=== PATIENT | male | born 1960 | race Two or more races ===

== ENCOUNTER 2019-02-27 21:11 | Emergency (ER) | payer MEDICAID ==
[~2019-02-27] VITALS: Ht 182.9 cm; Wt 79.4 kg
[2019-02-27] MEDS ORDERED: IV NS 0.9% 1,000 ML BAG IV ONE (22:00)
[2019-02-27] MEDS ORDERED: TDAP [DIPH/PERTUSSIS/TET] 0.5 ML VIAL IM ONE ×2 (22:00→22:14)
--- NOTE | 2019-02-27 22:28 | NUR ---
IV LINE L HAND 20G STARTED. FLUIDS BEING ADMINISTERED PER ORDERS.
[2019-02-27 22:43] LABS: BASOPHILS # (AUTO) 0.1 /CMM (0.0-0.2); BASOPHILS % (AUTO) 0.9 % (0.0-2.0); EOSINOPHILS % (AUTO) 1.1 % (0.0-6.0); HEMATOCRIT 39 % (39-51); HEMOGLOBIN 13.3 g/dL (13.5-17.5); LYMPHOCYTES # (AUTO) 3.6 /CMM (0.8-4.8); LYMPHOCYTES % (AUTO) 43.3 % (20.0-44.0); MEAN CORPUSCULAR HGB CONC 35 g/dl (31.0-36.0); MEAN CORPUSCULAR VOLUME 104 fL (80-96); MONOCYTES # (AUTO) 1.5 /CMM (0.1-1.30); MONOCYTES % (AUTO) 17.8 % (2.0-12.0); NEUTROPHILS # (AUTO) 3.1 /CMM (1.8-8.9); NEUTROPHILS % (AUTO) 36.9 % (43.0-81.0); PLATELET COUNT (AUTO) 192 /CMM (150-450); WHITE BLOOD COUNT (AUTO) 8.4 K/uL (4.3-11.0)
[2019-02-27 22:51] LABS: CALCIUM, SERUM 8.6 mg/dL (8.5-10.1); CARBON DIOXIDE 27 mmol/L (21-32); CHLORIDE 107 mmol/L (98-107); CREATININE 0.8 mg/dL (0.6-1.3); GLUCOSE 99 mg/dL (74-106); SODIUM SERUM 143 mmol/L (136-145); UREA NITROGEN, BLOOD 6 mg/dL (7-18)
[2019-02-27 22:58] LABS: ACETAMINOPHEN < 2 ug/ml (10-30); ALANINE AMINOTRANSFERASE 246 U/L (12-78); ALBUMIN 3.3 g/dL (3.4-5.0); ALCOHOL, BLOOD 438 mg/dL (0-0); ALKALINE PHOSPHATASE 80 U/L (46-116); ASPARTATE AMINOTRANSFERASE 247 U/L (15-37); BILIRUBIN,DIRECT 0.1 mg/dL (0.0-0.2); BILIRUBIN,TOTAL 0.3 mg/dL (0.2-1.0); SALICYLATE 4.2 mg/dL (2.8-20.0); TOTAL PROTEIN, SERUM 7.2 g/dL (6.4-8.2)
[2019-02-27 23:55] LABS: LYMPHOCYTES % (MANUAL) 46 % (16-48); MONOCYTES % (MANUAL) 14 % (0-11.0); NEUTROPHILS % (MANUAL) 40 (42-76)
[2019-02-27 23:58] LABS: APPEARANCE,URINE Clear (CLEAR); BILIRUBIN,URINE Negative (NEGATIVE); BLOOD, URINE Trace-intact Ery/uL (NEGATIVE); COLOR,URINE Yellow (YELLOW); KETONES,URINE Negative (NEGATIVE); LEUKOCYTE ESTERASE ,URINE Negative (NEGATIVE); NITRITE, URINE Negative (NEGATIVE); PROTEIN,URINE Negative (NEGATIVE); UGLUCOSE Negative (NEGATIVE); UROBILINOGEN,URINE 0.2 EU/dL (0.2)
[2019-02-28 00:02] LABS: BACTERIA,URINE Rare /HPF (None Seen); SQUAMOUS EPITHELIAL CELL,UR Few /HPF (None Seen); WBC,URINE NONE SEEN /HPF (0-3)
--- NOTE | 2019-02-28 03:31 | NUR ---
IV LINE REMOVED. NO BLEEDING NOTED. GAUZE APPLIED
--- NOTE | 2019-02-28 05:52 | NUR ---
PATIENT NOT READY FOR DISCHARGE AT THIS TIME. UNSTEADY GAIT. MD AWARE
--- NOTE | 2019-02-28 07:29 | NUR ---
ASSESSED PT ON BED ASLEEP, EASILY AROUSABLE, KEPT RESTED AND COMFORTABLE, WILL CONTINUE TO MONITOR.
--- NOTE | 2019-02-28 08:22 | NUR ---
Social service consult requested by JATIN Zimmerman for possible homelessness. Pt. is a 58 year old male who was brought in by paramedics after he was found drinking roberta at a grocery store just prior to arrival. Staff called 911 who later brought him here for further evaluation. SHAQUILLE met with the pt. bedside with SHELIA Torres. Pt. is alert and oriented x 4. Pt. was standing bedside and gathering his belongings. Pt's clothes appeared disheveled. Pt. denied being homeless and stated he resides at [address] [place] [address] [address] [place] [address]. Pt. states he lives alone,. Pt. informed SW, he was working at [employer] but is currently unemployed. SW got pt's social security number for admission staff to updated medical record. Pt. states he drinks wine daily. Pt. denied drinking any other alcohol, although pt. was found drinking Roberta at the grocery store. Pt. states he has been to an alcohol treatment program in [place] a year ago. Pt. states he goes to with friends in [place]. SHAQUILLE offered pt. referrals to alcohol treatment programs, however, pt declined. Pt. was provided with a TAP card to get home. No other social service needs are requested at this time. SW is available, if needed.
--- NOTE | 2019-02-28 08:25 | NUR ---
tiana aguilar at bedside for eval.
--- NOTE | 2019-02-28 08:30 | NUR ---
FOOD TRAY PROVIDED.
--- NOTE | 2019-02-28 08:34 | NUR ---
Patient discharged to home in stable condition. Written and verbal after care instructions given. Patient verbalizes understanding of instruction.
[2019-02-28 08:50] VITALS: BP 127/87
== END 2019-02-28 08:51 | disposition home or self-care (01) ==
LOC: ER 21:11 → EDBD 21:11 → ER 02-28 08:51
DX: S01.311A Laceration without foreign body of right ear, initial encounter (principal); S09.8XXA Other specified injuries of head, initial encounter; F10.129 Alcohol abuse with intoxication, unspecified; R74.0 Nonspecific elevation of levels of transaminase and lactic acid dehydrogenase [LDH]; R40.4 Transient alteration of awareness; Y90.8 Blood alcohol level of 240 mg/100 ml or more; X58.XXXA Exposure to other specified factors, initial encounter; Y93.89 Activity, other specified; Y92.89 Other specified places as the place of occurrence of the external cause; Y99.8 Other external cause status
CPT/HCPCS: 12011; 36415; 70450; 80048; 80076; 80305; 80307; 80329; 81001; 85025; 90471; 90715; 99284; A6403; G0480; 81000-TC

== ENCOUNTER 2019-02-28 11:24 | Emergency (ER) | payer MEDICAID ==
[~2019-02-28] VITALS: Ht 182.9 cm; Wt 92.5 kg
--- NOTE | 2019-02-28 11:25 | NUR ---
PT [id number], PER REPORT NOTED SEIZURE LIKE ACTIVITY AT [facility], PT IS AAOX1, NOT IN RESPIRATORY DISTRESS, HOOKED TO MONITOR, KEPT RESTED AND COMFORTABLE, WILL CONTINUE TO MONITOR.
[2019-02-28] MEDS ORDERED: LEVETIRACETAM (500MG) 1,000 MG in IV NS 0.9% 100 ML IV ONE (11:30)
[2019-02-28] MEDS ORDERED: IV NS 0.9% 1,000 ML BAG IV ONE (11:30)
--- NOTE | 2019-02-28 11:32 | NUR ---
SEEN AND EXAMINED BY .
--- NOTE | 2019-02-28 11:42 | NUR ---
IV LINE ESTABLISHED, BLOOD DRAWNED AND SENT TO LAB.
[2019-02-28 11:48] LABS: BASOPHILS % (AUTO) 0.4 % (0.0-2.0)
--- NOTE | 2019-02-28 11:49 | NUR ---
TO RADIOLOGY FOR CT.
[2019-02-28 11:50] LABS: EOSINOPHILS % (AUTO) 0.8 % (0.0-6.0); HEMATOCRIT 40 % (39-51); HEMOGLOBIN 13.6 g/dL (13.5-17.5); LYMPHOCYTES % (AUTO) 31.6 % (20.0-44.0); MEAN CORPUSCULAR HGB CONC 34 g/dl (31.0-36.0); MEAN CORPUSCULAR VOLUME 105 fL (80-96); MONOCYTES # (AUTO) 1.8 /CMM (0.1-1.30); MONOCYTES % (AUTO) 18.5 % (2.0-12.0); NEUTROPHILS # (AUTO) 4.7 /CMM (1.8-8.9); NEUTROPHILS % (AUTO) 48.7 % (43.0-81.0); PLATELET COUNT (AUTO) 206 /CMM (150-450); RED BLOOD CELL COUNT(AUTO) 3.77 MIL/uL (4.5-6.0); WHITE BLOOD COUNT (AUTO) 9.6 K/uL (4.3-11.0)
[2019-02-28 11:54] LABS: CALCIUM, SERUM 8.3 mg/dL (8.5-10.1); CREATININE 0.7 mg/dL (0.6-1.3); POTASSIUM 4.2 mmol/L (3.5-5.1)
[2019-02-28 12:02] LABS: ALBUMIN 3.2 g/dL (3.4-5.0); BILIRUBIN,DIRECT 0.1 mg/dL (0.0-0.2); BILIRUBIN,TOTAL 0.3 mg/dL (0.2-1.0); TOTAL PROTEIN, SERUM 7.3 g/dL (6.4-8.2)
[2019-02-28 13:13] LABS: BAND % (MANUAL) 8 % (0.0-5.0); EOSINOPHILS % (MANUAL) 4 % (0-4); LYMPHOCYTES % (MANUAL) 25 % (16-48); MONOCYTES % (MANUAL) 24 % (0-11.0); NEUTROPHILS % (MANUAL) 39 (42-76)
--- NOTE | 2019-02-28 16:45 | NUR ---
PT IS ASLEEP ON BED, RESPONDS TO PAIN ONLY, V/S STABLE, AWARE.
--- NOTE | 2019-02-28 16:49 | NUR ---
1000ML NS IV GIVEN VERBAL ORDERED BY .
--- NOTE | 2019-02-28 19:15 | NUR ---
REPORT GIVEN TO SHELIA PINA FOR [facility].
--- NOTE | 2019-02-28 22:10 | NUR ---
PT ASLEEP IN BED, SUPINE W/ HOB ELEVATED, LOW O2 SAT, PLACED ON 2 L/MIN O2 VIA NC, RESP EVEN & UNLABORED, NAD NOTED. ON CONTINUOUS MONITORING. BED LOW TO GROUND W/ SIDE RAILS UP FOR SAFETY.
--- NOTE | 2019-02-28 23:55 | NUR ---
PT ABLE TO REPOSITION SELF IN BED, ASLEEP ON LT SIDE W/ RESP EVEN & UNLABORED, NAD NOTED. ON CONTINUOUS MONITORING.
--- NOTE | 2019-03-01 01:18 | NUR ---
pt given orange juice, sitting up in bed drinking then returning back to sleep, resp even & unlabored, nad noted. Will continue to monitor.
--- NOTE | 2019-03-01 02:56 | NUR ---
PT REPOSITIONING SELF IN BED, ASLEEP, SUPINE W/ RESP EVEN & UNLABORED, ON CONTINUOUS MONITORING.
--- NOTE | 2019-03-01 05:16 | NUR ---
Patient ambulatory w/ steady gait, resp even & unlabored, denies any pain w/ nad noted. Patient discharged to home in stable condition. Written and verbal after care instructions given. Patient verbalizes understanding of instruction. Addendum: 03/01/19 at 0524 by [email or web address] IVHL removed. Catheter intact and site benign. Pressure and 4x4 applied to site. No bleeding noted. Patient adequately dressed w/ all belongings returned to patient.
[2019-03-01 05:24] VITALS: BP 149/65
== END 2019-03-01 05:24 | disposition home or self-care (01) ==
LOC: ER 11:25
DX: F10.129 Alcohol abuse with intoxication, unspecified (principal); Y90.8 Blood alcohol level of 240 mg/100 ml or more
CPT/HCPCS: 36415; 70450; 71045; 80048; 80076; 80307; 85025; 96365; 99284; J1953; J7030 ×4; G0480

== ENCOUNTER 2019-03-01 11:29 | Emergency (ER) | payer MEDICAID ==
[~2019-03-01] VITALS: Ht 177.8 cm; Wt 83.9 kg
--- NOTE | 2019-03-01 11:45 | NUR ---
PT PEDRORA FROM OUTSIDE A STORE TO ER BED 11. HERE FOR ETOH INTOXICATION. MULTIPLE ER VISITS FOR SAME REASON. GOWNED AND PLACED ON MONITOR. VSS.
--- NOTE | 2019-03-01 12:23 | NUR ---
DR POLANCO AT BEDSIDE FOR EVAL.
[2019-03-01] MEDS ORDERED: IV NS 0.9% 1,000 ML BAG IV ONE (12:30)
[2019-03-01 13:10] LABS: BASOPHILS # (AUTO) 0.1 /CMM (0.0-0.2); BASOPHILS % (AUTO) 0.7 % (0.0-2.0); EOSINOPHILS % (AUTO) 0.8 % (0.0-6.0); HEMATOCRIT 39 % (39-51); HEMOGLOBIN 13.4 g/dL (13.5-17.5); LYMPHOCYTES # (AUTO) 2.7 /CMM (0.8-4.8); LYMPHOCYTES % (AUTO) 35.2 % (20.0-44.0); MEAN CORPUSCULAR HGB CONC 34 g/dl (31.0-36.0); MEAN CORPUSCULAR VOLUME 104 fL (80-96); MONOCYTES # (AUTO) 1.1 /CMM (0.1-1.30); MONOCYTES % (AUTO) 14.2 % (2.0-12.0); NEUTROPHILS # (AUTO) 3.8 /CMM (1.8-8.9); NEUTROPHILS % (AUTO) 49.1 % (43.0-81.0); PLATELET COUNT (AUTO) 252 /CMM (150-450); RED BLOOD CELL COUNT(AUTO) 3.78 MIL/uL (4.5-6.0); WHITE BLOOD COUNT (AUTO) 7.7 K/uL (4.3-11.0)
[2019-03-01 13:33] LABS: ALKALINE PHOSPHATASE 84 U/L (46-116); BILIRUBIN,DIRECT 0.1 mg/dL (0.0-0.2); BILIRUBIN,TOTAL 0.3 mg/dL (0.2-1.0); CALCIUM, SERUM 8.1 mg/dL (8.5-10.1); CARBON DIOXIDE 29 mmol/L (21-32); CHLORIDE 108 mmol/L (98-107); CREATININE 0.6 mg/dL (0.6-1.3); GLUCOSE 106 mg/dL (74-106); POTASSIUM 3.8 mmol/L (3.5-5.1); SODIUM SERUM 144 mmol/L (136-145); UREA NITROGEN, BLOOD 3 mg/dL (7-18)
[2019-03-01 13:34] LABS: ACETAMINOPHEN 0 ug/ml (10-30); ALANINE AMINOTRANSFERASE 179 U/L (12-78); ALBUMIN 3.1 g/dL (3.4-5.0); ALCOHOL, BLOOD 365 mg/dL (0-0); ASPARTATE AMINOTRANSFERASE 127 U/L (15-37); SALICYLATE 3.9 mg/dL (2.8-20.0); TOTAL PROTEIN, SERUM 6.9 g/dL (6.4-8.2)
[2019-03-01 13:45] LABS: SERUM AMMONIA < 10 umol/L (11-32)
--- NOTE | 2019-03-01 18:20 | NUR ---
PT IS AMBULATORY W/ STEADY GAIT. WANTS TO BE D/C'D FROM ED. DENIES SI/HI. HOMELESS WAIVER SIGNED. D/C IN STABLE CONDITION.
[2019-03-01 18:22] VITALS: BP 132/84
== END 2019-03-01 18:25 | disposition home or self-care (01) ==
LOC: ER 11:32
DX: F10.129 Alcohol abuse with intoxication, unspecified (principal); R41.82 Altered mental status, unspecified; R94.31 Abnormal electrocardiogram [ECG] [EKG]; Z59.0 Homelessness; Y90.8 Blood alcohol level of 240 mg/100 ml or more
CPT/HCPCS: 36415; 70450; 80048; 80076; 80307; 80329; 82140; 82962; 84484; 85025; 93005; 96360; 99284; G0480; J7030

== ENCOUNTER 2019-04-18 12:44 | Emergency (ER) | payer MEDICAID ==
[~2019-04-18] VITALS: Ht 180.3 cm; Wt 83.9 kg
[2019-04-18] MEDS ORDERED: THIAMINE HCL 100 MG TABLET PO ONE (13:30)
[2019-04-18] MEDS ORDERED: MULTIVITAMINS,THERAGRAN 1 UDTAB TABLET PO SCH (13:30)
[2019-04-18] MEDS ORDERED: FOLIC ACID 1 MG TABLET PO ONE (13:30)
[2019-04-18] MEDS ORDERED: IV NS 0.9% 1,000 ML BAG IV ONE (13:30)
[2019-04-18] MEDS ORDERED: LORAZEPAM INJ 2 MG/ML VIAL IV ONE (14:00)
[2019-04-18 14:01] LABS: BASOPHILS % (AUTO) 0.8 % (0.0-2.0); EOSINOPHILS % (AUTO) 0.5 % (0.0-6.0); HEMATOCRIT 47 % (39-51); HEMOGLOBIN 15.8 g/dL (13.5-17.5); LYMPHOCYTES # (AUTO) 2.2 /CMM (0.8-4.8); LYMPHOCYTES % (AUTO) 33.2 % (20.0-44.0); MEAN CORPUSCULAR HGB CONC 34 g/dl (31.0-36.0); MEAN CORPUSCULAR VOLUME 105 fL (80-96); MONOCYTES # (AUTO) 0.6 /CMM (0.1-1.30); MONOCYTES % (AUTO) 8.9 % (2.0-12.0); NEUTROPHILS # (AUTO) 3.7 /CMM (1.8-8.9); NEUTROPHILS % (AUTO) 56.6 % (43.0-81.0); PLATELET COUNT (AUTO) 192 /CMM (150-450); WHITE BLOOD COUNT (AUTO) 6.5 K/uL (4.3-11.0)
[2019-04-18] MEDS ORDERED: FOLIC ACID 1 MG TABLET ONE (14:08)
[2019-04-18] MEDS ORDERED: THIAMINE HCL 100 MG TABLET ONE (14:08)
[2019-04-18 14:09] LABS: CALCIUM, SERUM 8.4 mg/dL (8.5-10.1); CREATININE 0.5 mg/dL (0.6-1.3); POTASSIUM 3.2 mmol/L (3.5-5.1)
[2019-04-18] MEDS ORDERED: LORAZEPAM INJ 2 MG/ML VIAL ONE (14:09)
[2019-04-18 14:23] LABS: ALBUMIN 3.2 g/dL (3.4-5.0); BILIRUBIN,DIRECT 0.3 mg/dL (0.0-0.2); BILIRUBIN,TOTAL 0.5 mg/dL (0.2-1.0); TOTAL PROTEIN, SERUM 8.1 g/dL (6.4-8.2)
--- NOTE | 2019-04-18 14:36 | NUR ---
[id number], etoh, covered w/ own feces, unable to take care of self. lives in a car. 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 PT AAOX3, VSS. DENIES CP, SOB, N/V @ THIS TIME. PT SEEN & EVAL'D BY SILKE JEREZ. MEDICATED ORDERED, PT ANAMARIA WELL. PT GIVEN A SHOWER & EATING A MEAL & WILL CONT TO MONITOR.
[2019-04-18] MEDS ORDERED: POTASSIUM CHLORIDE 20 MEQ TAB.PRT.SR PO ONE ×2 (15:30→16:17)
--- NOTE | 2019-04-18 17:00 | NUR ---
Patient is resting comfortably in bed with eyes closed. Easily aroused. VSS
--- NOTE | 2019-04-18 20:33 | NUR ---
Patient is resting comfortably in bed with eyes closed. Easily aroused. VSS
[2019-04-18 23:35] VITALS: BP 124/78
--- NOTE | 2019-04-18 23:36 | NUR ---
Patient discharged to home in stable condition. Written and verbal after care instructions given. Patient verbalizes understanding of instruction.IV removed. Catheter intact and site benign. Pressure and 4x4 applied to site. No bleeding noted.
== END 2019-04-18 23:37 | disposition home or self-care (01) ==
LOC: ER 12:49
DX: F10.129 Alcohol abuse with intoxication, unspecified (principal); K70.9 Alcoholic liver disease, unspecified; E87.6 Hypokalemia; R56.9 Unspecified convulsions; Y90.8 Blood alcohol level of 240 mg/100 ml or more; Z59.0 Homelessness
CPT/HCPCS: 36415; 80048; 80076; 80307; 83735; 85025; 96374; 99284; J2060; J7030; G0480